=== PATIENT | male | born 1965 | race Caucasian/White ===

== ENCOUNTER 2016-11-28 23:58 | Emergency (ER) | payer OTHER ==
[~2016-11-28] VITALS: Ht 167.6 cm; Wt 63.9 kg
[2016-11-29 00:26] LABS: BASOPHIL COUNT 0.1 K/uL (0-0.1); EOSINOPHIL (%) 3.1 % (0-5); EOSINOPHIL COUNT 0.3 K/uL (0-0.3); HEMATOCRIT 46.4 % (38.0-50.0); IMMATURE GRANULOCYTE (%) 0.4 % (0.0-0.7); INSTRUMENT ABS NEUTROPHIL CT 5.1 K/uL; LYMPHOCYTE COUNT 2.7 K/uL (1.0-2.8); MCH 34.3 PG (29.0-34.0); MCHC 35.6 G/DL (30.0-36.0); MCV 96.5 FL (86-99); MEAN PLAT.VOLUME 9.3 uM^3 (9.0-12.4); MONOCYTE (%) 8.2 % (3-12); MONOCYTE COUNT 0.7 K/uL (0-0.8); NEUTROPHIL (%) 57.2 % (45-76); NEUTROPHIL COUNT 5.1 K/uL (1.8-6.4); PLATELET COUNT 212 K/uL (156-360); RBC DIS.WIDTH-CV 11.5 % (11.8-14.6); RBC DIS.WIDTH-SD 41.1 % (39-53); RED BLOOD COUNT 4.81 M/uL (4.00-5.50); WHITE BLOOD COUNT 8.9 K/uL (4.1-10.2)
[2016-11-29 00:37] LABS: CHLORIDE 106 mEq/L (99-109); POTASSIUM 3.1 mEq/L (3.7-5.4); SODIUM 140 mEq/L (136-147)
[2016-11-29 00:38] LABS: GLUCOSE 91 mg/dL (70-99)
[2016-11-29 00:39] LABS: D-DIMER ELISA 0.24 mg/L FEU (< 0.57); PROTHROMBIN TIME 10.3 (9.2-11.2); PTT 29.6 (25-32)
[2016-11-29 00:40] LABS: ANION GAP 18 MEQ/L (2-14)
[2016-11-29 00:42] LABS: GFR ESTIMATE (CALCULATED) > 59 mL/min/
[2016-11-29 00:43] LABS: UREA NITROGEN (BUN) 7 mg/dL (9-23)
[2016-11-29 00:56] LABS: TROP-I INTERPRETATION NEGATIVE; TROPONIN-I < 0.01 ng/mL (0.0-0.30)
[2016-11-29 01:45] VITALS: BP 118/79
== END 2016-11-29 01:48 | disposition home or self-care (01) ==
LOC: EME 23:58
PROVIDERS: Emergency Medicine
DX: T67.8XXA Other effects of heat and light, initial encounter (principal); X30.XXXA Exposure to excessive natural heat, initial encounter; R00.2 Palpitations; R00.0 Tachycardia, unspecified; R06.02 Shortness of breath; R55 Syncope and collapse; F17.200 Nicotine dependence, unspecified, uncomplicated
CPT/HCPCS: 71010; 80048; 84484; 85025; 85379; 85610; 85730; 93005; 99281; 99284

== ENCOUNTER 2018-01-30 13:29 | Emergency (ER) | payer OTHER ==
[~2018-01-30] VITALS: Ht 175.3 cm; Wt 63.3 kg
[2018-01-30] MEDS ORDERED: PERCOCET 5/31 TABLET PO (17:22)
[2018-01-30 18:46] VITALS: BP 158/98
== END 2018-01-30 18:48 | disposition home or self-care (01) ==
LOC: EME 13:29
DX: S52.502A Unspecified fracture of the lower end of left radius, initial encounter for closed fracture (principal); S51.812A Laceration without foreign body of left forearm, initial encounter; W23.0XXA Caught, crushed, jammed, or pinched between moving objects, initial encounter; Z23 Encounter for immunization
CPT/HCPCS: 73090; 73110; 73130; 99281; 99285; J3010